=== PATIENT | male | born 1955 | race Caucasian/White ===

== ENCOUNTER 2019-01-17 15:03 | Outpatient (CLI) | payer OTHER ==
--- NOTE | 2019-01-17 16:56 | RAD ---
ONE VIEW ABDOMEN: 01/17/19 HISTORY: Renal calculi. Worsening right flank pain. COMPARISON: None. FINDINGS: There is a calcification projecting over the right renal silhouette measuring 0.8 cm. Bowel gas patte rn is nonspecific. IMPRESSION: Right renal calculus. POS: OFF
== END 2019-01-17 15:04 | disposition home or self-care (01) ==
LOC: RAD 15:03
PROVIDERS: ATTEND Urology
DX: R10.9 Unspecified abdominal pain (principal); N20.0 Calculus of kidney
CPT/HCPCS: 74018

== ENCOUNTER 2019-04-05 13:41 | Outpatient (CLI) | payer OTHER ==
--- NOTE | 2019-04-05 14:09 | CT ---
Exam: Head CT without contrast HISTORY: Trauma. Fall. Pain. COMPARISON: none FINDINGS: Hemorrhage: No intraparenchymal hemorrhage or extra-axial hematoma. Brain parenchyma: There is loss of ortiz-white matter differentiation involving the right temporal-par ietal region. The remainder the cerebrum demonstrates preservation of cortical ortiz-white matter differentiation. Ventricular system: Ventricles and sulci are patent and symmetric. Calvarium: Right calvarial fracture is noted. Fracture extends from the vertex down to the anterior a spect of the right temporal bone. The right mastoid air cells are adequately aerated. Sinuses and mastoid air cells: Mucosal thickening of the ethmoid air cells IMPRESSION: 1. No intracranial hemorrhage 2. Loss of ortiz-white matter differentiation the posterior right cerebrum likely representing a nonhe morrhagic contusion. 3. Right calvarial fracture.
== END 2019-04-05 13:42 | disposition home or self-care (01) ==
LOC: TBSIIMAG 13:41
PROVIDERS: ATTEND Neurological Surgery
DX: S06.5X9A Traumatic subdural hemorrhage with loss of consciousness of unspecified duration, initial encounter (principal); S06.6X9A Traumatic subarachnoid hemorrhage with loss of consciousness of unspecified duration, initial encounter; S42.001A Fracture of unspecified part of right clavicle, initial encounter for closed fracture
CPT/HCPCS: 70450

== ENCOUNTER 2021-09-04 08:51 | Day surgery (SDC) | payer MEDICARE, OTHER ==
[2021-09-01 12:17] VITALS: BMI 24.2
[2021-09-04] MEDS ORDERED: ceFAZolin (BATCH) 2 GM/100 ML BAG ONE (09:08)
[2021-09-04] MEDS ORDERED: Acetaminophen 500 MG TAB ONE (09:08)
[2021-09-04] MEDS ORDERED: Ketorolac Tromethamine 30 MG/ML VIAL ONE (09:08)
[2021-09-04] MEDS ORDERED: Gabapentin 300 MG CAP ONE (09:08)
[2021-09-04] MEDS ORDERED: Bupivacaine 0.25% HCL 30 ML VIAL ONE (11:24)
[2021-09-04] MEDS ORDERED: Lidocaine 1% w/Epinephrine 1:100K 20 ML VIAL ONE (11:24)
[2021-09-04] MEDS ORDERED: Midazolam HCl 2 mg/2 ml Vial ONE (11:37)
[2021-09-04] MEDS ORDERED: Fentanyl 100 MCG/2 ML VIAL ONE ×2 (11:37→12:30)
[2021-09-04] MEDS ORDERED: ePHEDrine 50 MG/ML VIAL ONE (11:43)
[2021-09-04] MEDS ORDERED: Dexamethasone 20 MG/5 ML VIAL ONE (11:43)
[2021-09-04] MEDS ORDERED: Glycopyrrolate 0.2 MG/ML 5 ML SYRINGE ONE (11:43)
[2021-09-04] MEDS ORDERED: Rocuronium Bromide 10 MG/ML (10ML VIAL) ONE (11:43)
[2021-09-04] MEDS ORDERED: Ondansetron PF 4 MG/2 ML Vial ONE (11:43)
[2021-09-04] MEDS ORDERED: PROPOFOL 200 MG/20 ML VIAL ONE (11:43)
[2021-09-04] MEDS ORDERED: Lidocaine 1% PF 5 ML VIAL ONE (11:43)
== END 2021-09-04 16:31 | disposition home or self-care (01) ==
LOC: SDC 08:51
PROVIDERS: ATTEND Specialist
PROC: 0YU64JZ Supplement Left Inguinal Region with Synthetic Substitute, Percutaneous Endoscopic Approach (ICD-10-PCS; principal; 2021-09-04)
DX: K40.90 Unilateral inguinal hernia, without obstruction or gangrene, not specified as recurrent (principal); K66.0 Peritoneal adhesions (postprocedural) (postinfection); I10 Essential (primary) hypertension; F17.210 Nicotine dependence, cigarettes, uncomplicated; Z79.899 Other long term (current) drug therapy; Z88.2 Allergy status to sulfonamides
CPT/HCPCS: 49650; C1781; J0690; J1100; J1885; J2250; J2405; J2704; J3010; J3490; S0020